=== PATIENT | female | born 1995 | race Caucasian/White ===

== ENCOUNTER 2019-09-19 01:13 | Emergency (ER) | payer SELFPAY ==
[2019-09-19 01:28] VITALS: BP 151/102; PULSE 90; RESP 16; TEMP 37; O2SAT 100; BMI 31.1
--- NOTE | 2019-09-19 02:36 | HMH.EDUROGF ---
ED Disposition Clinical Impression: IUD (intrauterine device) in place Disposition: Home, Self-Care Condition on Discharge: Good Instructions: DI for Intrauterine Device Insertion Additional Instructions: see rebar worker for follow up Referrals: Provider,MD Jose Luis [Primary Care Provider] - Flo Mehta MD [Staff Physician] - - Critical Care Critical Care Time: No Attestation: On 09/19/19, the high probability of a clinically significant, sudden or life threatening deterioration of the following system(s) required my full and direct attention, intervention and personal management. The time I documented below is in addition to time spent performing reported procedures but includes the following listed in this critical care notation. Medical Decision Making - Medical Records Medical records reviewed: Yes: I reviewed the patient's medical records. - Michel Inquiry Pt receiving controlled substance: No Vital Signs: 09/19/19 01:28 Temperature 98.6 F Temperature Source Oral Pulse Rate [Right Brachial] 90 Respiratory Rate 16 Blood Pressure [Right Arm] 151/102 H Blood Pressure Mean [Right Arm] 118 Blood Pressure Source [Right Arm] Automatic Cuff Blood Pressure Position [Right Arm] Sitting 02 Sat by Pulse Oximetry 100 Oxygen Delivery Method Room Air - Lab Data Lab results reviewed: Yes: I reviewed the patient's lab results. Orders (Tests/Meds): ORDERS Category Date Time Status US transvaginal Stat Exams 09/19/19 02:52 Ordered Urinalysis and Microscopic Stat Lab 09/19/19 01:36 Ordered Urine , HCG Qual. Stat Lab 09/19/19 01:36 Ordered - US Data US Images: Pelvis ED US Reviewed: Yes: I discussed the US results w/the radiologist Preliminary Findings: Normal/NAD (iud ok position) Female Urogenital HPI - General Chief complaint: Urogenital-Female Stated complaint: Needs IUD removed Time Seen by Provider: 09/19/19 01:40 Mode of Arrival: Ambulatory Source of Information: Patient, Significant Other, Medical Record Limitations: No Limitations Description of Symptoms (Recalled from ER Triage Doc. by RN): Patient reports that during sexual intercourse tonight her IUD was ripped out of place causing bleeding and cramping. - History of Present Illness HPI Narrative: about 2 hrs lpta during coitus - pulled on iud and has pain and bleeding - MD Complaint: vaginal bleeding, pelvic pain Onset (ago): hour(s) Severity: moderate Quality: sharp Sexual activity: yes : unsure Associated symptoms: denies other symptoms - Related Data Allergies Allergy/AdvReac Type Severity Reaction Status Date / Time No Known Allergies Allergy Verified 09/19/19 01:35 [facility] History - Hepatitis A Screen Drug use history?: No High risk sexual behaviors?: No History of sexually transmitted infection?: No Currently employed?: No Childcare worker?: No Do you have indoor plumbing?: Yes Do you have electricity?: Yes Attestation statement:: This patient has been screened for Hepatitis A risk factors. I have reviewed the patient's past medical history: Yes - Social History Smoking Status: Current every day smoker # Packs/Day (cigarettes): 1 Alcohol Intake: never Occupational Status: employed ROS Obtained: Yes All systems reviewed & no additional complaints - Constitutional Constitutional: Denies fever(s) - Eyes Eyes: Denies change in vision - ENT Ears, Nose, Mouth, and Throat: Denies sore throat - Cardiovascular Cardiovascular: Denies chest pain - Respiratory Respiratory: No cough - Gastrointestinal Gastrointestingal: Denies: abdominal pain - Genitourinary Female Genitourinary: Reports as per HPI, Reports abnormal vaginal bleeding - Musculoskeletal Musculoskeletal: Denies joint pain, Denies joint swelling, Denies limited range of motion - Integumentary/Breasts Skin/Breast: Denies rash - Neurologic Neurologic: Denies convulsions, Denies focal weakness, Denies heada
--- NOTE | 2019-09-19 02:52 | US_ITS ---
PROCEDURE: US TRANSVAGINAL CLINICAL INDICATION: dislodged IUD COMPARISON: No exams were available for comparison FINDINGS: Uterus appears normal except there is a linear echogenic focus in the endometrial canal of the body of the uterus suggesting IUD. There is no cul-de-sac fluid. Right ovary is 1.9 x 1.6 x 1.0 centimeters. There is good blood flow. There are a few small anechoic follicles. Left ovary is 2.3 x 1.3 x 1.4 centimeters with good blood flow and also few small anechoic follicles. IMPRESSION: IUD is present. Bilateral ovarian follicles. No acute process. Dictated by: Orestes Upton 09/19/2019 16:45 Electronically signed by Orestes Upton in [place] 09/19/2019 16:45
[2019-09-19 04:02] VITALS: BP 149/97; PULSE 93; RESP 16; TEMP 37; O2SAT 98
== END 2019-09-19 04:05 | disposition home or self-care (01) ==
PROVIDERS: Emergency Provider Emergency Medicine
DX: R10.2 Pelvic and perineal pain (principal); Z97.5 Presence of (intrauterine) contraceptive device
CPT/HCPCS: 76830; 99282